=== PATIENT | female | born 1970 | race Caucasian/White ===

== ENCOUNTER 2019-10-10 10:52 | Outpatient (CLI) | payer MEDICAID, SELFPAY ==
--- NOTE | 2019-10-10 11:01 | XR_ITS ---
WS: [id number] LEFT TIBIA-FIBULA 2 VIEWS HISTORY: PAIN IN LEFT TIBIA COMPARISON: 01/12/2019 No fracture, dislocation or joint abnormality. Similar appearance to the prior study. No osseous destruction. XR/XR tibia fibula LT 2V [id number] IMPRESSION: Normal LEFT tibia-fibula.
== END 2019-10-10 10:53 | disposition home or self-care (01) ==
PROVIDERS: Family Provider Internal Medicine; PCP Internal Medicine; Visit Provider Internal Medicine Rheumatology
DX: M89.8X6 Other specified disorders of bone, lower leg (principal)
CPT/HCPCS: 73590

== ENCOUNTER → 2019-10-25 13:01 | Outpatient (BNVA) | payer MEDICAID, SELFPAY | PROVIDERS: Family Provider Internal Medicine; PCP Internal Medicine; Referring Provider Licensed Practical Nurse; Visit Provider Psychiatry & Neurology Neurology | DX: M54.16 Radiculopathy, lumbar region (principal); F17.210 Nicotine dependence, cigarettes, uncomplicated | CPT/HCPCS: 95886; 95909 ==

== ENCOUNTER 2020-05-13 08:57 | Outpatient (CLI) | payer MEDICAID, SELFPAY ==
--- NOTE | 2020-05-13 09:15 | MM_ITS ---
WS: [id number] BILATERAL SCREENING DIGITAL MAMMOGRAM WITH CAD HISTORY: SCREENING COMPARISON: 03/01/2019, 02/15/2018, 11/12/2014 and 11/19/2015 Bilateral CC and MLO views submitted. Computer aided detection analyzed. Breast composition: There are scattered areas of fibroglandular density. No suspicious masses, microc alcifications or architectural distortion. Focal asymmetry in the upper outer quadrant of the LEFT br east has been stable over multiple prior exams. MM/[id number] IMPRESSION: BI-RADS: 2-Benign FOLLOW UP: 1 Year Follow-up
== END 2020-05-13 08:58 | disposition home or self-care (01) ==
LOC: RADSHAW 09:04
PROVIDERS: PCP Internal Medicine; Visit Provider Internal Medicine
DX: Z12.31 Encounter for screening mammogram for malignant neoplasm of breast (principal)
CPT/HCPCS: 77067

== ENCOUNTER 2020-07-16 20:22 | Emergency (ER) | payer MEDICAID, SELFPAY ==
[2020-07-16 20:26] VITALS: BP 100/68; PULSE 86; RESP 18; TEMP 36.8; O2SAT 96; BMI 25.2
[2020-07-16 20:42] VITALS: BP 104/66; PULSE 84; RESP 18; O2SAT 95
--- NOTE | 2020-07-16 20:46 | ECG_ITS ---
[facility] Test Date: 2020-07-16 Pat Name: Blanca Simmons Department: Room: Gender: Female Mobile Home Technician: : 1970 Requested By: Jo Ann Dimas Order Number: [id number] Fadia MD: Nickolas Ford M.D. Measurements Intervals Ulysses Rate: 80 P: 47 OR: 156 QRS: 1 QRSD: 81 T: 50 QT: 381 QTc: 441 Interpretive Statements SINUS RHYTHM LOW QRS VOLTAGE IN PRECORDIAL LEADS [QRS DEFLECTION < 1.0 mV IN CHEST LEADS] Compared to ECG 06/08/2017 17:32:05 No significant changes Electronically Signed On 07-18-2020 20:37:19 CDT by Nickolas Ford M.D. [email or web address]
--- NOTE | 2020-07-16 21:15 | ED_ITS ---
HPI - Allergic Reaction General: Chief complaint: Allergic Reaction Stated complaint: poss allergic reaction Time Seen by Provider: 07/16/20 20:35 History of Present Illness: HPI narrative: This patient is a 49-year-old female who comes in today with what she thinks might be an allergic reaction to medications. Her doctor started her on Topamax today for migraines. She took a dose at about 4:00 and shortly after started feeling like her heart was racing. She feels like she has some tingling in her throat and in her fingers. She is not having any trouble breathing. No chest pain. She also complains of having a migraine. She does not know what dose she was started on. She is never taken that medicine before. complaint: other (Heart racing) Onset (ago): hour(s) (4) Exposure: medication Associated symptoms: Reports other (Tingling in her fingertips. When she drinks Pepsi she feels like her throat is tingling); Deny abdominal pain, nausea or vomiting Severity: mild Treatment prior to arrival: none Previous Allergic Reaction History: none Review of Systems General: Reports: 10 or more systems reviewed and unremarkable except in HPI and below Const: Denies: fever(s), chills, fatigue or malaise Eyes: Denies: change in vision ENMT: Denies: odynophagia Card: Denies: chest pain or swelling of feet/ankles Resp: Denies: dyspnea, productive cough or non-productive cough GI: Denies: abdominal pain, nausea or vomiting : Denies: flank pain or difficulty voiding Musc: Denies: neck pain or back pain Skin/Breast: Denies: rash Neuro: Reports: headache(s) (Frequent migraines); Denies: numbness in extremities or weakness in extremities Taiwo/Lymph: Denies: easy bruising or easy bleeding PFSH ED PFSH: Medical History Intervertebral disc disorder with radiculopathy of lumbar region Other idiopathic scoliosis, lumbar region Scoliosis of thoracic spine Surgical History History of lumbar laminectomy Left L4-L5 laminotomy/foraminotomy, 11/26/2016, [facility] Family History Grandmother Diabetes Both Social History Smoking and tobacco status: current every day smoker Alcohol intake: never Lives independently: Yes Household members: significant other Marital status: Current occupational status: unemployed History of recent travel: No Physical Exam Const: COMMON NORMALS: no acute distress, patient oriented x3, no limitations and alert GENERAL APPEARANCE: cooperative and comfortable HENMT: HEAD & SCALP: normal to inspection FACE & SINUS: normal facial exam Eye: GENERAL EYE: appearance normal, both eyes and all related structures Neck/C-Spine: COMMON NORMALS: supple, no meningeal signs and no JVD Chest: COMMONS NORMALS: normal inspection of the chest Resp: COMMON NORMALS: normal respiratory effort, No use of accessory muscles and clear to auscultation bilaterally AUSCULTATION: clear to auscultation bilaterally Cardio: COMMON NORMALS: no JVD, regular rate, regular rhythm and No murmurs present (Cardio) RATE: regular rate RHYTHM: regular rhythm GI: COMMON NORMALS: Normal to inspection, nondistended, normoactive bowel sounds present, Soft to palpation and non-tender INSPECTION: Yes normal to inspection AUSCULTATION: Yes normoactive bowel sounds PALPATION: Yes Soft to palpation Back/Pelvis: COMMON NORMALS: thoracic and lumbar spine normal to inspection Extremity: COMMON NORMALS: normal to inspection Neuro: COMMON NORMALS: patient oriented x3, moves all extremities, no focal motor deficits and no sensory deficits noted SENSORIUM/ORIENTATION: Yes alert MENINGEAL SIGNS: Yes no meningeal signs Psych: COMMON NORMALS: mental status grossly normal, cooperative and normal affect Skin: COMMON NORMALS: no rashes or lesions noted and turgor normal GENERAL SKIN EXAM: no rashes or lesions noted and turgor normal Course ED course: This patient presents with complaints of heart racing and some tingling. She has a normal exam here. Her heart rate is 80. Her EKG is nor mal. Blood pressure is normal. She has no signs of any anaphylaxis or localized allergic reaction. I think it is entirely possible that she did have a reaction to the medication. I will suggest that she breaks the tablet in half and takes half of the dose or that she does not take it again until she has a chance to talk with her primary care provider. I do not think this is a dangerous reaction and there don't seem to be any serious interactions with her other medications. Vital Signs: Vital signs: Vital Signs Temperature 98.1 F 07/16/20 21:44 Pulse Rate 88 07/16/20 21:44 Respiratory Rate 16 07/16/20 21:44 Blood Pressure 128/82 07/16/20 21:44 Pulse Oximetry 95 07/16/20 21:44 Discharge Plan Discharge Patient Disposition: Home Clinical Impression: Adverse reaction to drug Qualifiers: Encounter type: initial encounter Qualified Code(s): T50.905A - Adverse effect of unspecified drugs, medicaments and biological substances, initial encounter Condition: Stable Prescriptions: No Action duloxetine [Cymbalta] 30 mg capsule,delayed release(DR/EC) 30 mg PO DAILY RF: 0 hydrocodone-acetaminophen [[place]] 7.5-325 mg tablet 1 tab PO Q6H PRNRF: 0 omeprazole 40 mg capsule,delayed release(DR/EC) 40 mg PO QDAY RF: 0 ropinirole 1 mg tablet 1 mg PO QDAY RF: 0 citalopram 10 mg tablet 10 mg PO QDAY RF: 0 Discharge Orders: Discharge Order (Routine); Ordered 07/16/20 Ordered By: Jo Ann North Referrals: Steve Burton DO [Primary Care Provider] - Discharge Diet: Usual diet Discharge Activity: Resume usual activity Patient Instructions: Adverse Drug Reaction (ED) Activity Restrictions/Additional Instructions: It should be safe to continue taking the Topamax but we would suggest that use break the tablet in half and only take half of the prescribed dosage until you have a chance to talk with your doctor. If you are not comfortable with that you can just wait and talk to your doctor before taking any more doses. Return to the ER if any new or worse symptoms occur. Discharge Date/Time: 07/16/20 21:45 Coding Level of Care Code ED Photo Lab Specialist for Sampson Manzano Exam Comprehensive
[2020-07-16 21:44] VITALS: BP 128/82; PULSE 88; RESP 16; TEMP 36.7; O2SAT 95
== END 2020-07-16 21:45 | disposition home or self-care (01) ==
PROVIDERS: Emergency Provider Emergency Medicine; PCP Internal Medicine
DX: T88.7XXA Unspecified adverse effect of drug or medicament, initial encounter (principal); T50.905A Adverse effect of unspecified drugs, medicaments and biological substances, initial encounter; F17.210 Nicotine dependence, cigarettes, uncomplicated
CPT/HCPCS: 12345; 93005; 99282

== ENCOUNTER 2020-10-24 09:25 | Outpatient (CLI) | payer MEDICAID, SELFPAY ==
--- NOTE | 2020-10-24 09:36 | XR_ITS ---
WS: [id number] Scoliosis series, AP and lateral views of the thoracic and lumbar spines, 10/24/2020 Clinical Data: SCOLIOSIS Comparison: None. Findings: The patient has a dextroscoliosis of the lower thoracic spine which measures 26 degrees. The measurem ents were from the superior aspect of T3 to the superior cortex of T9 which is the apex and then to t he superior aspect of L1. There is a levoscoliosis of the lumbar spine of 53 degrees. The measurements were obtained from the s uperior aspect of T12 and superior aspect of the cortex of L3 which is the apex and then to the super ior aspect of L5. No anomalous vertebral bodies are seen. There are no compression fractures. There are clips in the ri ght upper quadrant from a cholecystectomy. XR/XR scoliosis survey 4-5V 72013 Impression: 1. Dextroscoliosis of the lower thoracic spine 26 degrees. 2. Levoscoliosis of the lumbar spine of 53 degrees.
== END 2020-10-24 09:26 | disposition home or self-care (01) ==
LOC: RAD 09:29
PROVIDERS: PCP Internal Medicine; Visit Provider Physician Assistant
DX: M41.9 Scoliosis, unspecified (principal)
CPT/HCPCS: 72083

== ENCOUNTER 2021-04-22 13:27 | Emergency (ER) | payer MEDICAID, SELFPAY ==
[2021-04-22 13:55] VITALS: BP 133/82; PULSE 96; RESP 18; TEMP 37.7; O2SAT 97; BMI 27.2
[2021-04-22 15:13] VITALS: BP 102/63; PULSE 93; RESP 14; TEMP 38.1; O2SAT 93
--- NOTE | 2021-04-22 15:17 | W.ED.BACK ---
HPI - Back Pain/Injury General: Chief Complaint: Back Pain/Injury Stated Complaint: SENT FROM /PAIN IN UPPER BACK Time Seen by Provider: 04/22/21 15:05 History of Present Illness: HPI Narrative: Patient is a 50-year-old female comes to the ED with back pain. She denies any trauma or injury to cause pain. She says she woke up with pain around her mid back region that is bilateral. She was seen at [facility] today and they checked her for COVID-19 and she was negative. They then told her to come here to be evaluated for back pain. Associated symptoms: Deny abdominal pain, chills, dysuria, fatigue, fever(s), hematuria, nausea or vomiting Review of Systems Const: Denies: fever(s), chills or fatigue Eyes: Denies: change in vision or eye discomfort ENMT: Denies: throat pain, odynophagia, nasal discharge or nasal congestion Card: Denies: chest pain, palpitations, edema, swelling of feet/ankles, dyspnea on exertion or orthopnea Resp: Denies: dyspnea, productive cough or non-productive cough GI: Denies: abdominal pain, nausea, vomiting, diarrhea, constipation or hematochezia : Denies: flank pain, dysuria or hematuria Musc: Reports: back pain; Denies: neck pain or extremity swelling Skin/Breast: Denies: rash or new lesions Neuro: Denies: headache(s), numbness in extremities or weakness in extremities [facility] ED PFSH: Medical History Intervertebral disc disorder with radiculopathy of lumbar region Other idiopathic scoliosis, lumbar region Scoliosis of thoracic spine Surgical History History of lumbar laminectomy Left L4-L5 laminotomy/foraminotomy, 11/26/2016, [facility] Family History Grandmother Diabetes Both Social History Smoking and tobacco status: current every day smoker Alcohol intake: never Lives independently: Yes Household members: significant other Marital status: Current occupational status: unemployed History of recent travel: No Physical Exam Const: COMMON NORMALS: no acute distress, patient oriented x3, healthy appearing and alert GENERAL APPEARANCE: cooperative and comfortable HENMT: COMMON NORMALS: normocephalic HEAD & SCALP: normocephalic MOUTH: Normal oral and palatal mucosa present THROAT: posterior oropharynx normal and uvula midline Neck/C-Spine: COMMON NORMALS: supple GENERAL: Yes normal visual inspection Resp: COMMON NORMALS: normal respiratory effort, No retractions, No use of accessory muscles and clear to auscultation bilaterally AUSCULTATION: clear to auscultation bilaterally Cardio: COMMON NORMALS: regular rate, regular rhythm, S1 normal heart sound present, S2 normal heart sound present, No gallops present (Cardio), No clicks present (Cardio), No murmurs present (Cardio) and Peripheral pulses 2+ throughout RATE: regular rate RHYTHM: regular rhythm HEART SOUNDS: S1 normal heart sound present and S2 normal heart sound present PERIPHERAL PULSES: Peripheral pulses 2+ throughout GI: COMMON NORMALS: Normal to inspection, nondistended, normoactive bowel sounds present, Soft to palpation, non-tender and no masses PALPATION: Yes Soft to palpation : COMMON NORMALS: Yes no CVA tenderness BLADDER/KIDNEY EXAM: Yes no CVA tenderness Back/Pelvis: COMMON NORMALS: no CVA tenderness THORACIC SPINE/UPPER BACK: Yes thoracic ROM normal, No thoracic spinal tenderness and Yes paraspinal muscle tenderness Thoracic paraspinal muscle tenderness: bilateral Bilateral thoracic paraspinal muscle tenderness: T5 and T6 Extremity: COMMON NORMALS: normal to inspection Neuro: COMMON NORMALS: patient oriented x3 and moves all extremities SENSORIUM/ORIENTATION: Yes alert Skin: GENERAL SKIN EXAM: dry skin Course Vital Signs: Vital signs: Vital Signs Temperature 100 F H 04/22/21 13:55 Pulse Rate 96 04/22/21 13:55 Respiratory Rate 18 04/22/21 13:55 Blood Pressure 133/82 04/22/21 13:55 Pulse Oximetry 97 04/22/21 13:55 MDM - Back Pain/Injury MDM Narrative: Medical decision making narrative: Patient is a 50-year-old female who comes to the ED with nontraumatic thoracic back pain. Denies any injury to cause pain. Exam shows a healthy nontoxic appearing 50-year-old female in no acute distress. She has some thoracic paraspinal muscle tenderness bilaterally. No spinal tenderness noted. Rest of exam is benign. Patient was diagnosed with thoracic back pain and discharged home with a prescription for Celebrex and Flexeril. Follow-up with PCP in 7 to 10 days reevaluation. Return to ED precautions given. Patient understood agree with plan. Discharge Plan Discharge Patient Disposition: Home Clinical Impression: Thoracic back pain Qualifiers: Chronicity: acute Back pain laterality: bilateral Qualified Code(s): M54.6 - Pain in thoracic spine Condition: Stable Prescriptions: New Celebrex 100 mg capsule 100 mg PO BID Qty: 20 RF: 0 cyclobenzaprine 10 mg tablet 10 mg PO BID PRN (Reason: muscle spasm) Qty: 20 RF: 0 No Action duloxetine [Cymbalta] 30 mg capsule,delayed release(DR/EC) 30 mg PO DAILY RF: 0 hydrocodone-acetaminophen [[place]] 7.5-325 mg tablet 1 tab PO Q6H PRNRF: 0 omeprazole 40 mg capsule,delayed release(DR/EC) 40 mg PO QDAY RF: 0 ropinirole 1 mg tablet 1 mg PO QDAY RF: 0 citalopram 10 mg tablet 10 mg PO QDAY RF: 0 Discharge Orders: Discharge ED (Routine); Ordered 04/22/21 Ordered By: Jitendra Lquue Referrals: Steve Burton DO [Primary Care Provider] - Discharge Diet: Regular Discharge Activity: Increase activity as tolerated Patient Instructions: Back Pain (ED) Activity Restrictions/Additional Instructions: Follow-up with medical provider as directed in 7 to 10 days for reevaluation. Take medications as prescribed. Rest and apply cold pack or heat on sore back area to help with symptoms. Stretch back daily and limit lifting and activity for the next couple days to allow for your back to heal. Return to the ER or your medical provider if condition worsens. Please read and understand discharge instructions. Thank you for choosing [facility] for your healthcare needs today. Please realize this is an emergency room and that we are providing you with a medical screening exam and this may not be complete and all inclusive of all the testing and or work up that you may need to determine your ailment or severity of your illness. It is very important that you follow up as instructed or that you return to the Emergency Department should you have concerns or if your condition changes or worsens in any way. Coding Level of Care Code ED Back Facer for Sampson Manzano
[2021-04-22] MEDS: ketorolac 60 mg/2 mL INJ IM (15:48)
[2021-04-22] MEDS: orphenadrine 30 mg/mL Inj 2 mL 60 MG IM (15:52)
== END 2021-04-22 16:00 | disposition home or self-care (01) ==
PROVIDERS: Emergency Provider Physician Assistant; PCP Internal Medicine
DX: M54.6 Pain in thoracic spine (principal); F17.200 Nicotine dependence, unspecified, uncomplicated
CPT/HCPCS: 96372; 99283; J1885; J2360

== ENCOUNTER 2021-06-05 10:24 | Outpatient (CLI) | payer MEDICAID, SELFPAY ==
--- NOTE | 2021-06-05 10:36 | XR_ITS ---
WS: [id number] Bilateral hips, 2 views each, 06/05/2021 Clinical Data: PAIN IN LEFT HIP Comparison: AP pelvis, 08/25/2019. Findings: Right hip: No erosion, sclerosis, narrowing or cyst formation is seen. There is a small acetabular lip. There ar e no fractures or dislocations. The adjacent right SI joint and pubic symphysis are normal. Left hip: No erosion, sclerosis, narrowing or cyst formation is seen. There is a small acetabular lip. There ar e no fractures or dislocations. The adjacent left SI joint is unremarkable. XR/XR hip BI 3-4V wo/w pel [id number] Impression: Mild bilateral lipping of the acetabulum.
== END 2021-06-05 10:25 | disposition home or self-care (01) ==
LOC: RAD 10:31
PROVIDERS: PCP Internal Medicine; Visit Provider Anesthesiology Pain Medicine
DX: M25.551 Pain in right hip (principal); M25.552 Pain in left hip
CPT/HCPCS: 73502; 73522

== ENCOUNTER 2021-07-09 12:52 | Outpatient (CLI) | payer MEDICAID, SELFPAY ==
--- NOTE | 2021-07-09 13:05 | MM_ITS ---
WS: [id number] BILATERAL SCREENING DIGITAL MAMMOGRAM WITH CAD HISTORY: SCREENING COMPARISON: 05/13/2020 and 03/01/2019 Bilateral CC and MLO views submitted. Computer aided detection analyzed. Breast composition: There are scattered areas of fibroglandular density. No suspicious masses, microc alcifications or architectural distortion. Long-term stability of an asymmetry in the upper outer urban drant of the LEFT breast. MM/[id number] IMPRESSION: BI-RADS: 2-Benign FOLLOW UP: 1 Year Follow-up
== END 2021-07-09 12:53 | disposition home or self-care (01) ==
LOC: RADSHAW 12:55
PROVIDERS: PCP Internal Medicine; Visit Provider Internal Medicine
DX: Z12.31 Encounter for screening mammogram for malignant neoplasm of breast (principal)
CPT/HCPCS: 77067

== ENCOUNTER → 2021-07-21 00:01 | Outpatient (BNVA) | payer MEDICAID, SELFPAY | PROVIDERS: PCP Internal Medicine; Visit Provider Obstetrics & Gynecology | DX: R32 Unspecified urinary incontinence (principal) | CPT/HCPCS: 81000; 87086 ==

== ENCOUNTER 2021-12-22 12:00 | Outpatient (CLI) | payer MEDICAID, SELFPAY | END 2021-12-22 12:01 | disposition home or self-care (01) | LOC: SLEEP 12-23 13:59 | PROVIDERS: PCP Internal Medicine; Visit Provider Internal Medicine | DX: G47.33 Obstructive sleep apnea (adult) (pediatric) (principal); R09.02 Hypoxemia | CPT/HCPCS: G0399 ==

== ENCOUNTER → 2022-04-16 10:53 | Outpatient (BNVA) | payer MEDICAID, SELFPAY | PROVIDERS: PCP Internal Medicine; Visit Provider Internal Medicine Cardiovascular Disease | DX: R00.2 Palpitations (principal); I49.1 Atrial premature depolarization; I49.3 Ventricular premature depolarization | CPT/HCPCS: 93270 ==

== ENCOUNTER 2022-07-26 09:53 | Emergency (ER) | payer MEDICAID, SELFPAY ==
[2022-07-26 10:02] VITALS: BMI 26.2
[2022-07-26 10:06] VITALS: BP 123/83; PULSE 79; RESP 18; TEMP 36.7; O2SAT 100
[2022-07-26 10:40] VITALS: BP 108/77; PULSE 68; RESP 17; O2SAT 96
--- NOTE | 2022-07-26 11:14 | W.ED.GENADLT ---
HPI - General Adult General: Chief complaint: General Medical Stated complaint: HBP and headache Time Seen by Provider: 07/26/22 10:47 History of Present Illness: 51-year-old female presenting today with headache and elevated blood pressure. Patient notes that she had a gradual onset headache. Initially began last night. With her symptoms this morning. She states that she has a history of migraine headaches. Noted her migraine headache was in full force this morning. Tried her triptan without improvement in overall symptoms. She states that her blood pressure was elevated this morning. Into the 200s. Prompting her to seek care at the ED. She denies numbness, tingling, weakness. She denies chest pain or shortness of breath. She denies abdominal pain. She denies dysuria or polyuria. She takes no blood pressure medications. Review of Systems General: Reports: 10 or more systems reviewed and unremarkable except in HPI and below [facility] ED PFSH: Medical History (Updated 07/26/22 @ 11:35 by See Eaton DO) Dyslipidemia Fibromyalgia GERD (gastroesophageal reflux disease) Intervertebral disc disorder with radiculopathy of lumbar region Lumbar post-laminectomy syndrome Other idiopathic scoliosis, lumbar region Scoliosis of thoracic spine Surgical History (Updated 07/01/22 @ 10:29 by Angela Lara MD) History of delivery 1998 - [place], [place] by Dr. Ferguson. History of cholecystectomy [place], [place] by Dr. Hollis. History of hysterectomy for benign disease 2000 at [place], [place]. History of lumbar laminectomy Left L4-L5 laminotomy/foraminotomy, 11/26/2016, [facility] History of lumbar surgery History of tubal ligation [place], [place]. Family History Grandmother Diabetes Both Grandfather Myocardial infarction Stroke Family/Other Hypertension Social History Smoking and tobacco status: current every day smoker cigarettes Packs smoked per day: 1.5 Years cigarettes smoked: 25 Alcohol intake: never Lives independently: Yes Household members: significant other Marital status: Current occupational status: unemployed History of recent travel: No Physical Exam Const: COMMON NORMALS: no acute distress, patient oriented x3 and alert GENERAL APPEARANCE: cooperative ORIENTATION/CONSCIOUSNESS: Yes awake, Yes oriented to person, Yes oriented to place and Yes oriented to time HENMT: COMMON NORMALS: normocephalic, atraumatic, external ears normal, Normal external nose present and moist oral mucous membranes HEAD & SCALP: normal to inspection, normocephalic and atraumatic NOSE: Normal external nose present GENERAL EAR: hearing grossly impaired EXTERNAL EAR: Yes external ears normal Eye: COMMON NORMALS: Equal, round and reactive pupils present, EOMs intact bilaterally, conjunctivae normal and no scleral icterus GENERAL EYE: appearance normal, both eyes and all related structures EYELID: eyelids normal CONJUNCTIVA: Yes conjunctivae normal SCLERA: sclerae normal PUPIL: Yes Equal, round and reactive pupils present Neck/C-Spine: COMMON NORMALS: full ROM, supple and no JVD GENERAL: Yes normal visual inspection Lymph: LYMPHATIC: no lymphadenopathy noted and no lymphedema noted Chest: COMMONS NORMALS: normal inspection of the chest Resp: COMMON NORMALS: normal respiratory effort, No retractions and No use of accessory muscles Cardio: COMMON NORMALS: no JVD, regular rate and regular rhythm RATE: regular rate RHYTHM: regular rhythm GI: COMMON NORMALS: Normal to inspection, nondistended, normoactive bowel sounds present : COMMON NORMALS: Yes no CVA tenderness BLADDER/KIDNEY EXAM: Yes no CVA tenderness Back/Pelvis: COMMON NORMALS: no CVA tenderness and thoracic and lumbar spine normal to inspection Extremity: COMMON NORMALS: normal to inspection, full ROM and capillary refill normal GENERAL: Yes normal exam except as noted Neuro: COMMON NORMALS: patient oriented x3, CN's II-XII intact bilaterally, moves all extremities, no focal motor deficits, no sensory deficits noted and gait normal SENSORIUM/ORIENTATION: Yes alert, Yes oriented to person, Yes oriented to place and Yes oriented to time Psych: COMMON NORMALS: mental status grossly normal, Normal thought process present, cooperative and normal affect THOUGHT PROCESS: Normal thought process present Skin: COMMON NORMALS: no rashes or lesions noted and no wounds GENERAL SKIN EXAM: no rashes or lesions noted Course Vital Signs: Vital signs: Vital Signs Temperature 98.1 F 07/26/22 10:06 Pulse Rate 68 07/26/22 10:40 Respiratory Rate 17 07/26/22 10:40 Blood Pressure 108/77 10/23/22 10:40 Pulse Oximetry 96 07/26/22 10:40 Oxygen Delivery Me thod 07/26/22 10:40 [facility] - General Adult Medical Decision Making 51-year-old female presenting today with headache. Headache similar to prior migraines. No neurologic symptoms suggest this is a life-threatening cause of headache. No strokelike symptoms. Blood pressure is resolved without intervention. Patient was given medicine with improvement in headache. Patient was given strict return precautions and recommended routine outpatient follow-up. Discharge Plan Discharge Patient Disposition: Home Clinical Impression: Headache Condition: Stable Prescriptions: No Action duloxetine [Cymbalta] 30 mg capsule,delayed release(DR/EC) 30 mg PO DAILY hydrocodone-acetaminophen [[place]] 7.5-325 mg tablet 1 tab PO Q6H PRN omeprazole 40 mg capsule,delayed release(DR/EC) 40 mg PO QDAY ropinirole 1 mg tablet 1 mg PO QDAY citalopram 10 mg tablet 10 mg PO QDAY oxybutynin chloride 5 mg tablet 5 mg PO DAILY Qty: 30 0RF naproxen sodium [Aleve] 220 mg tablet 220 mg PO BID PRN metoprolol succinate 25 mg tablet extended release 24 hr 12.5 mg PO DAILY Qty: 15 6RF Celebrex 100 mg capsule 100 mg PO BID Qty: 20 0RF cyclobenzaprine 10 mg tablet 10 mg PO BID PRN (Reason: muscle spasm) Qty: 20 0RF Discharge Orders: Discharge ED (Routine); Ordered 07/26/22 Ordered By: See Eaton Referrals: Steve Burton DO [Primary Care Provider] - Patient Instructions: General Headache (ED) Coding Level of Care Code ED Sports [employer] Internship for Chg Fwd Exam Comprehensive
[2022-07-26] MEDS: acetaminophen 325 mg Tablet 975 MG PO (11:26)
[2022-07-26] MEDS: ketorolac 30 mg/mL INJ 15 MG IVP (11:26)
[2022-07-26] MEDS: prochlorperazine 10 mg/2 mL Inj IVP (11:27)
[2022-07-26 11:36] VITALS: BP 175/89; O2SAT 97
[2022-07-26 11:41] VITALS: BP 175/89; PULSE 70; O2SAT 98
== END 2022-07-26 11:45 | disposition home or self-care (01) ==
PROVIDERS: Emergency Provider Emergency Medicine; PCP Internal Medicine
DX: R51.9 Headache, unspecified (principal)
CPT/HCPCS: 96374; 96375; 99284; J0780; J1885

== ENCOUNTER 2023-09-07 10:16 | Outpatient (CLI) | payer MEDICAID, SELFPAY ==
--- NOTE | 2023-09-07 10:19 | MM_ITS ---
WS: [id number] BILATERAL 3D TOMOSYNTHESIS DIGITAL SCREENING MAMMOGRAPHY WITH CAD CLINICAL INFORMATION: SCREENING HISTORY: Screening mammogram. [place] LEFT breast COMPARISON: 2020 TECHNIQUE: Bilateral CC and MLO views. FINDINGS: Scattered fibroglandular densities bilaterally. No suspicious focal mass, asymmetry, calcifications, or architectural distortion. No evidence of malignancy. Stable lucent centered calcification RIGHT br east. Stable asymmetric dense breast tissue upper outer LEFT breast. A few incidental intramammary ly mph nodes. IMPRESSION: MM/[place] [id number] BI-RADS: 2-Benign FOLLOW UP: 1 Year Follow-up Recommend return to annual screening mammography.
== END 2023-09-07 10:17 | disposition home or self-care (01) ==
LOC: RAD 10:16
PROVIDERS: PCP Internal Medicine; Visit Provider Internal Medicine
DX: Z12.31 Encounter for screening mammogram for malignant neoplasm of breast (principal)
CPT/HCPCS: 77063; 77067

== ENCOUNTER 2024-10-04 09:55 | Emergency (ER) | payer OTHER, MEDICAID, SELFPAY ==
[2024-10-04 10:01] VITALS: BP 137/87; PULSE 94; TEMP 36.7; O2SAT 94; BMI 25.2
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
[2024-10-04] MEDS: dexamethasone 10 mg/mL INJ IM (13:11)
[2024-10-04 14:28] VITALS: BP 129/87; PULSE 79; RESP 16; O2SAT 93
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
== END 2024-10-04 14:30 | disposition home or self-care (01) ==
PROVIDERS: Emergency Provider Physician Assistant; PCP Family Medicine
DX: S20.222A Contusion of left back wall of thorax, initial encounter (principal); S20.212A Contusion of left front wall of thorax, initial encounter; F17.210 Nicotine dependence, cigarettes, uncomplicated; E78.5 Hyperlipidemia, unspecified; X58.XXXA Exposure to other specified factors, initial encounter
CPT/HCPCS: 71100; 72072; 96372; 99284; J1100

== ENCOUNTER 2024-11-24 13:05 | Outpatient (CLI) | payer OTHER, MEDICAID, SELFPAY ==
--- NOTE | 2024-11-24 13:16 | USR_ITS ---
PROCEDURE INFORMATION: Exam: US Duplex Bilateral Lower Extremity Arteries Exam date and time: 11/24/2024 1:36 PM Age: 54 years old Clinical indication: Pain; Leg, lower; Bilateral; Additional info: Claudication of bilateral lower limbs TECHNIQUE: Imaging protocol: Real-time ultrasound scan of the arteries of the bilateral lower extremities with 2-D cuellar scale, color Doppler flow and spectral waveform analysis. Images documented and saved. COMPARISON: US soft tissue/extremity [id number] 09/21/2018 10:12 AM FINDINGS: Right external iliac artery: Patent right iliac artery with normal waveform and flow velocities. Right common femoral artery: Patent right common femoral artery with normal waveforms and flow velocities. Right superficial femoral artery: Patent right superficial femoral artery with normal waveforms and flow velocities. Right popliteal artery: Patent right popliteal artery, with a focal decrease in peak systolic velocity (33 cm/s), but otherwise normal waveform. Right calf/foot arteries: Patent right posterior tibial artery with normal waveform and flow velocity. Patent right dorsalis pedis artery with normal waveform and flow velocity. Left external iliac artery: Patent left common iliac artery with normal waveform and flow velocity. Left common femoral artery: Patent left common femoral artery with normal waveform and flow velocity. Left superficial femoral artery: Patent left superficial femoral artery with normal waveform and flow velocities. Left popliteal artery: Patent left popliteal artery, with a focal decrease in peak systolic velocity ( 37cm/s), but otherwise normal waveform. Left calf/foot arteries: Patent left posterior tibial artery with normal waveform and flow velocity. Patent left dorsalis pedis artery with normal waveform and slightly elevated flow velocity. US/CV arterial duplex [facility] [id number] IMPRESSION: 1. Patent right popliteal artery, with a focal decrease in peak systolic velocity (33 cm/s), but otherwise normal waveform. Questions inflow disease from a possible more proximal stenosis (not confidently seen in this exam). 2. Patent left popliteal artery, with a focal decrease in peak systolic velocity ( 37cm/s), but otherwise normal waveform. Questions inflow disease from a possible more proximal stenosis (not confidently seen in this exam). 3. Remainder of the arterial system is patent. COMMENTS: Consider follow-up bilateral lower extremity CTA runoff for further evaluation.
== END 2024-11-24 13:06 | disposition home or self-care (01) ==
LOC: RAD 13:06
PROVIDERS: PCP Family Medicine; Visit Provider Internal Medicine
DX: I70.213 Atherosclerosis of native arteries of extremities with intermittent claudication, bilateral legs (principal); R93.89 Abnormal findings on diagnostic imaging of other specified body structures
CPT/HCPCS: 93925

== ENCOUNTER 2024-11-29 11:03 | Outpatient (CLI) | payer OTHER, MEDICAID, SELFPAY ==
--- NOTE | 2024-11-29 11:06 | MM_ITS ---
WS: [id number] BILATERAL SCREENING DIGITAL TOMOSYNTHESIS MAMMOGRAM WITH CAD HISTORY: SCREENING COMPARISON: 09/07/2023, 07/09/2021 Bilateral CC and MLO views with tomosynthesis and synthetic mammography submitted. Computer aided detection analyzed. Breast composition: There are scattered areas of fibroglandular density. No suspicious masses, microcalcifications or architectural distortion. Long-term stability of focal asymmetry upper outer quadrant LEFT breast. No suspicious masses or calcifications. MM/MM scr BI tomosynthesis [id number] IMPRESSION: BI-RADS: 2 - Benign. FOLLOW UP: 1 Year Follow-up
== END 2024-11-29 11:04 | disposition home or self-care (01) ==
PROVIDERS: PCP Family Medicine; Visit Provider Family Medicine
DX: Z12.31 Encounter for screening mammogram for malignant neoplasm of breast (principal); R92.323 Mammographic fibroglandular density, bilateral breasts; N64.89 Other specified disorders of breast
CPT/HCPCS: 77063; 77067

== ENCOUNTER 2025-01-01 11:58 | Outpatient (CLI) | payer OTHER, MEDICAID, SELFPAY ==
--- NOTE | 2025-01-01 12:15 | CTR_ITS ---
PROCEDURE INFORMATION: Exam: CTA Abdominal Aorta and Bilateral Lower Extremities (Run-off) With Contrast Exam date and time: 01/01/2025 12:20 PM Age: 54 years old Clinical indication: Other: Bilat legs; Prior surgery; Surgery date: 6+ months; Surgery type: Hyst, gb, appy; Chronic bilateral leg pain; Additional info: Pvd TECHNIQUE: Imaging protocol: Computed tomographic angiography of the of the abdominal aorta, pelvis and bilateral lower extremities with contrast. 3D rendering (Not supervised by radiologist): MIP and/or 3D reconstructed images were created by the technologist. Radiation optimization: All CT scans at this facility use at least one of these dose optimization techniques: automated exposure control; mA and/or kV adjustment per patient size (includes targeted exams where dose is matched to clinical indication); or iterative reconstruction. Contrast material: OMNIPAQUE 350; Contrast volume: 125 ml; Contrast route: INTRAVENOUS (IV); COMPARISON: [place] [id number] 11/24/2024 1:36 PM RADIATION DOSE METRICS: Total DLP (mGy-cm): 1257.36 FINDINGS: Aorta: The aorta is normal in caliber without aneurysm or dissection. There is minimal calcified plaque involving the distal aorta. Celiac trunk and mesenteric arteries: No occlusion or significant stenosis. Renal arteries: No occlusion or significant stenosis. Right iliac arteries: No occlusion or significant stenosis. Right femoral/popliteal arteries: No occlusion or significant stenosis. Right infrapopliteal arteries: No occlusion or significant stenosis. Left iliac arteries: No occlusion or significant stenosis. Left femoral/popliteal arteries: No occlusion or significant stenosis. Left infrapopliteal arteries: No occlusion or significant stenosis. Liver: There is diffuse fatty infiltration of the liver. The liver is otherwise normal. Diaphragm: There is a moderate-sized hiatal hernia. Gallbladder and biliary ducts: There are surgical clips within the gallbladder fossa. Pancreas: Unremarkable. No mass. No ductal dilation. Spleen: Normal. No splenomegaly. Adrenal glands: Normal. No mass. Kidneys and ureters: Normal. No mass. Stomach and bowel: No dilated loops of large or small bowel is appreciated. There is mild wall thickening versus underdistention involving the distal descending colon and sigmoid colons. Underdistention is favored. Recommend clinical correlation. Appendix: The appendix is not identified. Urinary bladder: Unremarkable. No mass. Reproductive: Uterus is not identified. Intraperitoneal space: Unremarkable. No free air. No significant fluid collection. Lymph nodes: No lymphadenopathy. Bones/joints: No acute fracture. No dislocation. Soft tissues: There is a relatively small fat filled right groin hernia. CT/CT angio abd aorta runof [id number] IMPRESSION: 1. No acute vascular abnormalities identified. 2. Mild wall thickening versus underdistention involving the distal descending colon and sigmoid colons. Recommend clinical correlation as to the presence of a mild colitis. 3. Moderate-sized hiatal hernia. 4. Fatty infiltration of the liver.
[2025-01-01] MEDS: iohexol 350 mg/mL 500 mL Btl (per mL) IV (12:27)
== END 2025-01-01 11:59 | disposition home or self-care (01) ==
PROVIDERS: PCP Family Medicine; Visit Provider Internal Medicine Cardiovascular Disease
DX: I73.9 Peripheral vascular disease, unspecified (principal); R93.89 Abnormal findings on diagnostic imaging of other specified body structures; K44.9 Diaphragmatic hernia without obstruction or gangrene; K76.0 Fatty (change of) liver, not elsewhere classified; K40.90 Unilateral inguinal hernia, without obstruction or gangrene, not specified as recurrent
CPT/HCPCS: 75635

== ENCOUNTER 2025-02-23 10:40 | Outpatient (CLI) | payer OTHER, MEDICAID, SELFPAY ==
--- NOTE | 2025-02-23 10:42 | MR_ITS ---
WS: [id number] MRI LUMBAR SPINE NONCONTRAST HISTORY: LUMBAR RADICULOPATHY, LEFT leg radiculopathy. COMPARISON: 07/27/2019 TECHNIQUE: Sagittal and axial multisequence imaging is submitted. Severe LEFT curvature of the mid lumbar spine with mild progression since 2019. There is a small amount of marrow edema in the endplates of L2, L3 and L4. No acute fractures. Disc spaces are asymmetrically narrowed. Conus terminates normally at L1-2 disc level. L1-L2: Asymmetric disc bulging, asymmetric to the LEFT. Mild LEFT foraminal stenosis. L2-L3: Osteophytic ridging with annular disc bulging and facet arthritis. Moderate facet arthritis resulting in mild RIGHT subarticular recess stenosis. There is a small shallow proximal RIGHT foraminal disc protrusion contributing to the stenosis. L3-L4: Diffuse asymmetric disc bulging with facet joint arthritis. Thecal sac is being significantly encroached on in the RIGHT subarticular recess and foramina. There is disc contacting the RIGHT L3 and L4 nerve roots. Mild LEFT foraminal stenosis. L4-L5: Mild annular disc bulging with severe LEFT facet joint arthritis. Shallow LEFT subarticular recess disc protrusion. Thecal sac is being deformed. Severe LEFT and mild RIGHT foraminal stenosis. L5-S1: Diffuse disc bulging with severe LEFT and mild RIGHT facet arthritis. Moderate to severe LEFT foraminal stenosis and mild RIGHT foraminal stenosis. Paravertebral soft tissues are negative for acute process. Fatty atrophy RIGHT psoas muscle. MR/MR lumbar spine wo con* [id number] IMPRESSION: 1. Severe levoscoliosis with mild progression since 2019. 2. Multifocal asymmetric disc space narrowing and facet joint arthropathy due to the scoliosis. 3. L4-5: Severe LEFT and mild RIGHT foraminal stenosis predominantly due to sc oliosis and facet arthritis. 4. L5-S1: Moderate to severe LEFT and mild RIGHT foraminal stenosis. 5. L3-4: RIGHT subarticular recess and RIGHT foraminal stenosis with contact o n the RIGHT L3 and L4 nerve roots. 6. L2-3: Mild RIGHT subarticular recess stenosis with moderate facet arthritis .
== END 2025-02-23 10:41 | disposition home or self-care (01) ==
PROVIDERS: PCP Family Medicine; Visit Provider Family Medicine
DX: M54.16 Radiculopathy, lumbar region (principal); M41.86 Other forms of scoliosis, lumbar region; M47.896 Other spondylosis, lumbar region; M48.061 Spinal stenosis, lumbar region without neurogenic claudication; M48.07 Spinal stenosis, lumbosacral region; M43.8X6 Other specified deforming dorsopathies, lumbar region; M51.369 Other intervertebral disc degeneration, lumbar region without mention of lumbar back pain or lower extremity pain; M51.26 Other intervertebral disc displacement, lumbar region; M51.379 Other intervertebral disc degeneration, lumbosacral region without mention of lumbar back pain or lower extremity pain; M47.897 Other spondylosis, lumbosacral region; M62.58 Muscle wasting and atrophy, not elsewhere classified, other site
CPT/HCPCS: 72148

== ENCOUNTER 2025-06-05 08:57 | Outpatient (CLI) | payer OTHER, MEDICAID, SELFPAY ==
--- NOTE | 2025-06-05 09:02 | XRR_ITS ---
PROCEDURE INFORMATION: Exam: XR Lumbosacral Spine Exam date and time: 06/05/2025 9:09 AM Age: 54 years old Clinical indication: Low back pain; Prior surgery; Surgery date: 6+ months; Surgery type: Appy, hyst, gb; Additional info: Thoracic spondylosis TECHNIQUE: Imaging protocol: Radiologic exam of the lumbosacral spine. Views: 6 or more views. Including flexion and extension views. COMPARISON: MR lumbar spine wo con* [id number] 02/23/2025 10:54 AM FINDINGS: Bones/joints: Moderate to severe dextrocurvature of the lumbar spine centered at L2-L3. Associated lateral degenerative changes are noted. No acute fracture or compression deformity. No subluxations. Multilevel intervertebral disc height loss is noted. Multilevel neural foraminal stenosis at L2-S1 is better characterized on prior MRI. Soft tissues: Unremarkable. Organs: Cholecystectomy clips are seen in the right upper quadrant. XR/XR lumbar spine 6V w f/e [id number] IMPRESSION: 1. Severe dextroscoliosis with associated degenerative changes centered at L2-L3. 2. No acute fracture or compression deformity. 3. No subluxations. 4. Multilevel neural foraminal stenosis is better characterized on prior MRI from 02/23/2025.
--- NOTE | 2025-06-05 09:03 | XRR_ITS ---
PROCEDURE INFORMATION: Exam: XR Thoracic Spine Exam date and time: 06/05/2025 9:09 AM Age: 54 years old Clinical indication: Pain in thoracic spine; Additional info: Lumbosacral spondylosis with radiculopathy TECHNIQUE: Imaging protocol: Radiologic exam of the thoracic spine. Views: 3 views. COMPARISON: CR XR thoracic spine 3V* [id number] 10/04/2024 1:55 PM FINDINGS: Bones/joints: Twelve rib-bearing thoracic vertebral bodies are present. No acute fracture or compression deformity is noted. No subluxations. Varying degrees of mild intervertebral disc height loss noted at several levels. Mild degenerative changes are present. Mild lower thoracic dextrocurvature, fully centered at L2-L3. Soft tissues: Unremarkable. Lungs: No acute pulmonary process is noted. The imaged lungs are clear. Organs: Cholecystectomy clips are seen in the right upper quadrant. XR/XR thoracic spine 2V [id number] IMPRESSION: 1. No acute pulmonary process. 2. No subluxations. 3. Mild degenerative joint and disc disease leading into a severe lumbar dextrocurvature.
== END 2025-06-05 08:58 | disposition home or self-care (01) ==
PROVIDERS: PCP Family Medicine; Visit Provider Student in an Organized Health Care Education/Training Program
DX: M47.27 Other spondylosis with radiculopathy, lumbosacral region (principal); M51.16 Intervertebral disc disorders with radiculopathy, lumbar region
CPT/HCPCS: 72070; 72114